=== PATIENT | female | born 1990 | race Caucasian/White ===

== ENCOUNTER 2019-02-15 02:44 | Emergency (ER) | payer MEDICAID ==
[~2019-02-15] VITALS: Ht 152.4 cm; Wt 56.7 kg
[2019-02-15] MEDS ORDERED: IBUPROFEN 600 MG TAB PO ONE ×2 (03:28→03:30)
[2019-02-15 04:41] VITALS: BP 107/67
== END 2019-02-15 04:54 | disposition home or self-care (01) ==
LOC: ER 02:50
DX: J03.00 Acute streptococcal tonsillitis, unspecified (principal)

== ENCOUNTER 2023-04-12 00:51 | Emergency (ER) | payer MEDICAID ==
[~2023-04-12] VITALS: Ht 152.4 cm; Wt 52.3 kg
[2023-04-12 01:15] VITALS: BP 134/87; PULSE 99; RESP 15; TEMP 98.8; O2SAT 98
[2023-04-12] MEDS ORDERED: IBUP-1453 PO ×3 (01:37→04:13)
[2023-04-12] MEDS ORDERED: CLIN300C70 PO ×3 (01:37→04:13)
[2023-04-12] MEDS ORDERED: HYDROcodone-ACET 5/325MG TAB PO ONE (01:45)
[2023-04-12] MEDS ORDERED: CLINDAMYCIN HCL 150 MG CAP PO ONE (01:45)
== END 2023-04-12 01:52 | disposition home or self-care (01) ==
LOC: ER 00:51
DX: S02.5XXA Fracture of tooth (traumatic), initial encounter for closed fracture (principal); X58.XXXA Exposure to other specified factors, initial encounter; Y93.89 Activity, other specified; Y92.89 Other specified places as the place of occurrence of the external cause; Y99.8 Other external cause status